=== PATIENT | male | born 1945 | race Caucasian/White ===

== ENCOUNTER 2018-02-24 13:55 | Inpatient (IN) ==
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
[2018-02-24 14:21] LABS: Baso % (Auto) 0.2 % (0.0-2.0); Eos # (Auto) 0.2 th/mm3 (0.0-0.4); Eos % (Auto) 2.4 % (0.0-4.0); Hemoglobin 15.6 gm/dL (13.0-17.0); Lymph # (Auto) 3.7 th/mm3 (1.0-4.8); Lymph % (Auto) 37.3 % (9.0-44.0); Mean Corpuscular HGB Conc 33.1 % (32.0-36.0); Mean Corpuscular Hemoglobin 32.4 pg (27.0-34.0); Mean Corpuscular Volume 97.9 fL (80.0-100.0); Mean Platelet Volume 7.2 fL (7.0-11.0); Mono # (Auto) 0.9 th/mm3 (0.0-0.9); Mono % (Auto) 9.5 % (0.0-8.0); Neut % (Auto) 50.6 % (16.0-70.0); Platelet Count 235 th/mm3 (150-450); Red Cell Distribution Width 13.8 % (11.6-17.2); White Blood Count 9.9 th/mm3 (4.0-11.0)
[2018-02-24 14:38] LABS: Activated Partial Thrombo Time 23.8 sec (24.3-30.1); Prothrombin Time 10.6 sec (9.8-11.6)
[2018-02-24 14:40] LABS: Alanine Aminotransferase 45 U/L (12-78); Albumin 4.3 g/dL (3.4-5.0); Anion Gap 26 meq/L (5-15); Aspartate Aminotransferase 36 U/L (15-37); Blood Urea Nitrogen 17 mg/dL (7-18); Calcium 9.3 mg/dL (8.5-10.1); Carbon Dioxide 10.1 meq/L (21.0-32.0); Chloride 108 meq/L (98-107); Glomerular Filtration Rate 37 mL/min (>89); Glucose,Random 170 mg/dL (74-106); Potassium 4.5 meq/L (3.5-5.1); Sodium 144 meq/L (136-145)
[2018-02-24 14:44] LABS: Alkaline Phosphatase 102 U/L (45-117); Total Protein 7.3 g/dL (6.4-8.2)
[2018-02-24 16:24] LABS: ABG Base Excess -1.1 mmol/L (-2-2); ABG PCO2 39 mmHg (38-42); ABG PO2 156 mmHg (61-120)
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
--- NOTE | 2018-02-24 17:40 | ECG ---
Date Performed: 02/24/2018 Time Performed: 13:56:03 PTAGE: 89 years EKG: SINUS TACHYCARDIA POSSIBLE LEFT ATRIAL ENLARGEMENT POSSIBLE RIGHT VENTRICULAR CONDUCTION DE LAY POSSIBLE ANTEROLATERAL MYOCARDIAL INFARCTION ABNORMAL ECG NO PREVIOUS TRACING DOCTOR: Van Gonzalez Interpretating Date/Time 02/24/2018 17:38:51
[2018-02-24] MEDS: Potassium Chloride Inj 10 MEQ in Sod Chloride 0.9% Inj 1,000 ML IV.CONT SCH (20:07)
[2018-02-24] MEDS: Famotidine PF Inj 20 MG/2 ML Vial IV.PUSH SCH (21:33)
[2018-02-25] MEDS ORDERED: Chlorhexidine Gluconate 2% 1 Pack (2 Cloths) TOPICAL PRN (04:00)
[2018-02-25] MEDS: Chlorhexidine Gluconate 2% 1 Pack (2 Cloths) TOPICAL SCH (04:39)
[2018-02-25 07:44] LABS: Baso % (Auto) 0.2 % (0.0-2.0); Hematocrit 40.3 % (39.0-51.0); Hemoglobin 13.7 gm/dL (13.0-17.0); Lymph # (Auto) 0.8 th/mm3 (1.0-4.8); Lymph % (Auto) 8.8 % (9.0-44.0); Mean Corpuscular HGB Conc 34.1 % (32.0-36.0); Mean Corpuscular Hemoglobin 32.1 pg (27.0-34.0); Mean Corpuscular Volume 94.2 fL (80.0-100.0); Mean Platelet Volume 6.8 fL (7.0-11.0); Mono # (Auto) 0.8 th/mm3 (0.0-0.9); Mono % (Auto) 8.4 % (0.0-8.0); Neut # (Auto) 7.9 th/mm3 (1.8-7.7); Neut % (Auto) 82.6 % (16.0-70.0); Platelet Count 149 th/mm3 (150-450); Red Blood Count 4.28 mil/mm3 (4.50-5.90); Red Cell Distribution Width 13.8 % (11.6-17.2); White Blood Count 9.6 th/mm3 (4.0-11.0)
[2018-02-25 08:12] LABS: Alanine Aminotransferase 35 U/L (12-78); Albumin 3.6 g/dL (3.4-5.0); Alkaline Phosphatase 70 U/L (45-117); Anion Gap 6 meq/L (5-15); Aspartate Aminotransferase 34 U/L (15-37); Blood Urea Nitrogen 19 mg/dL (7-18); Calcium 8.4 mg/dL (8.5-10.1); Carbon Dioxide 27.4 meq/L (21.0-32.0); Chloride 112 meq/L (98-107); Glomerular Filtration Rate 68 mL/min (>89); Glucose,Random 125 mg/dL (74-106); Potassium 4.4 meq/L (3.5-5.1); Sodium 145 meq/L (136-145); Total Protein 6.5 g/dL (6.4-8.2)
[2018-02-25] MEDS: Enoxaparin Inj 40 MG/0.4 ML Syringe SQ SCH (08:20)
[2018-02-25] MEDS: Potassium Chloride Inj 10 MEQ in Sod Chloride 0.9% Inj 1,000 ML IV.CONT SCH (08:20)
[2018-02-25] MEDS: Famotidine PF Inj 20 MG/2 ML Vial IV.PUSH SCH ×2 (08:20→22:35)
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
[2018-02-26] MEDS: Chlorhexidine Gluconate 2% 1 Pack (2 Cloths) TOPICAL SCH (03:11)
[2018-02-26] MEDS: Famotidine PF Inj 20 MG/2 ML Vial IV.PUSH SCH (08:11)
[2018-02-26] MEDS: Enoxaparin Inj 40 MG/0.4 ML Syringe SQ SCH (08:12)
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
== END 2018-02-26 15:10 | disposition home or self-care (01) ==
LOC: NEPE 13:55 → NEDA 15:56 → EDBD 15:56 → HIMC 20:55 → N07 02-25 19:20
PROVIDERS: ADMIT Internal Medicine; ATTEND Internal Medicine